=== PATIENT | female | born 1950 | race African-American/Black ===

== ENCOUNTER 2018-05-05 07:12 | Inpatient (IN) | payer SELFPAY ==
[~2018-05-05 07:12] MED LIST: BUPIVACAINE-EPI 0.5%-1:200000 50 ML VIAL.; MORPHINE SULFATE 2 MG/ML DISP.SYRIN. IV; ONDANSETRON PF 4 MG/2 ML VIAL. IV; PROCHLORPERAZINE 10 MG/2 ML VIAL. IV; fentaNYL PF VIAL 100 MCG/2 ML VIAL IV
[2018-05-05] MEDS: IV RINGERS,LACTATED 1000ML 1,000 ML IV ×2 (08:00→15:53)
[2018-05-05] MEDS: LIDOCAINE 1% PF 2 ML VIAL. ID (08:00)
[2018-05-05] MEDS ORDERED: MIDAZOLAM HCL/PF 2 MG/2 ML VIAL. (08:33)
[2018-05-05] MEDS ORDERED: ROPIVacaine 0.2% IN 0.9%NACL PF 40 MG/20 ML DISP.SYRIN. (08:46)
[2018-05-05 08:54] LABS: ADD MAN DIFF? NO
[2018-05-05 09:04] LABS: BASO % 1 % (0-3); EOS # 0.3 x10^3/uL (0.0-0.7); EOS % 5 % (0-3); HEMATOCRIT 37.8 % (36.0-47.0); HEMOGLOBIN 12.8 g/dL (12.0-15.5); LYMPH % 46 % (24-48); MEAN CORPUSCULAR HEMOGLOBIN 29 pg (25-35); MEAN CORPUSCULAR HGB CONC 34 g/dL (31-37); MEAN CORPUSCULAR VOLUME 86 fL (79-100); MONO # 0.5 x10^3/uL (0.0-1.1); MONO % 8 % (0-9); NEUT # 2.6 x10^3uL (1.8-7.7); NEUT % 41 % (31-73); PLATELET COUNT 330 x10^3/uL (140-400); RED BLOOD COUNT 4.39 x10^6/uL (3.50-5.40); RED CELL DISTRIBUTION WIDTH 14.5 % (11.5-14.5); WHITE BLOOD COUNT 6.5 x10^3/uL (4.0-11.0)
[2018-05-05 09:06] LABS: ANION GAP 8 (6-14); BLOOD UREA NITROGEN 5 mg/dL (7-20); BUN/CREATININE RATIO 8 (6-20); CALCIUM 8.9 mg/dL (8.5-10.1); CARBON DIOXIDE 31 mmol/L (21-32); CHLORIDE 103 mmol/L (98-107); CREATININE 0.6 mg/dL (0.6-1.0); GLUCOSE 120 mg/dL (70-99); POTASSIUM 3.6 mmol/L (3.5-5.1); SODIUM 142 mmol/L (136-145)
[2018-05-05 09:12] LABS: ALBUMIN 3.2 g/dL (3.4-5.0); ALBUMIN/GLOBULIN RATIO 0.7 (1.0-1.7); ALK PHOS 61 U/L (46-116); ALT (SGPT) 25 U/L (14-59); AST (SGOT) 20 U/L (15-37); TOTAL BILIRUBIN 0.4 mg/dL (0.2-1.0); TOTAL PROTEIN 7.7 g/dL (6.4-8.2)
[2018-05-05 09:14] LABS: INR 1.1 (0.8-1.1); PARTIAL THROMBOPLASTIN TIME 29 SEC (24-38); PROTHROMBIN TIME PATIENT 13.5 SEC (11.7-14.0)
[2018-05-05] MEDS ORDERED: fentaNYL PF VIAL 250 MCG/5 ML VIAL (09:24)
[2018-05-05] MEDS ORDERED: ISOFLURANE > 120 MINUTES. IH (09:24)
[2018-05-05] MEDS ORDERED: ROCURONIUM 50 MG/5 ML VIAL. ×2 (09:25→11:31)
[2018-05-05] MEDS ORDERED: ONDANSETRON PF 4 MG/2 ML VIAL. ×2 (09:25)
[2018-05-05] MEDS ORDERED: DEXAMETHASONE SOD PHOS 20 MG/5 ML VIAL. (09:25)
[2018-05-05] MEDS ORDERED: PROPOFOL 20 ML IV (09:25)
[2018-05-05] MEDS ORDERED: LIDOCAINE 2% PF Vial for OR 5 ML VIAL. (09:26)
[2018-05-05] MEDS ORDERED: GLYCOPYRROLATE 1 MG/5 ML VIAL. (13:29)
[2018-05-05] MEDS ORDERED: NEOSTIGMINE METHYLSULFATE 5 MG/5 ML SYRINGE. (13:29)
[2018-05-05] MEDS ORDERED: ONDANSETRON PF 4 MG/2 ML VIAL. IV (15:45)
[2018-05-05] MEDS ORDERED: 0.9 % SODIUM CHLORIDE 10 ML DISP.SYRIN. IV ×2 (15:45)
[2018-05-05] MEDS ORDERED: ceFAZolin SODIUM 1 GM in IV DEXTROSE 5% 50 ML IV (21:00)
[2018-05-05] MEDS: ceFAZolin SODIUM IV Push 1 GM VIAL. IVP (21:25)
[2018-05-05 23:16] LABS: POC GLUCOSE 241 mg/dL (70-99)
[2018-05-05] MEDS: POTASSIUM CL 20MEQ-0.45% NACL 1,000 ML IV (23:59)
[2018-05-05] MEDS: INSULIN LISPRO 300 UNITS/3 ML INSULN.PEN. SQ (23:59)
[2018-05-06] MEDS: POTASSIUM CL 20MEQ-0.45% NACL 1,000 ML IV ×3 (03:00→21:26)
[2018-05-06] MEDS: ceFAZolin SODIUM IV Push 1 GM VIAL. IVP ×3 (05:47→21:23)
[2018-05-06 06:25] LABS: BASO % 0 % (0-3); EOS % 0 % (0-3); HEMATOCRIT 35.2 % (36.0-47.0); HEMOGLOBIN 11.7 g/dL (12.0-15.5); LYMPH # 2.3 x10^3/uL (1.0-4.8); LYMPH % 13 % (24-48); MEAN CORPUSCULAR HEMOGLOBIN 29 pg (25-35); MEAN CORPUSCULAR HGB CONC 33 g/dL (31-37); MEAN CORPUSCULAR VOLUME 86 fL (79-100); MONO # 0.8 x10^3/uL (0.0-1.1); MONO % 4 % (0-9); NEUT # 15.2 x10^3uL (1.8-7.7); NEUT % 83 % (31-73); PLATELET COUNT 312 x10^3/uL (140-400); RED BLOOD COUNT 4.09 x10^6/uL (3.50-5.40); RED CELL DISTRIBUTION WIDTH 14.8 % (11.5-14.5); WHITE BLOOD COUNT 18.3 x10^3/uL (4.0-11.0)
[2018-05-06 06:35] LABS: ALBUMIN 2.3 g/dL (3.4-5.0); ALBUMIN/GLOBULIN RATIO 0.6 (1.0-1.7); ALK PHOS 54 U/L (46-116); ALT (SGPT) 20 U/L (14-59); ANION GAP 7 (6-14); AST (SGOT) 16 U/L (15-37); BLOOD UREA NITROGEN 9 mg/dL (7-20); BUN/CREATININE RATIO 8 (6-20); CALCIUM 7.6 mg/dL (8.5-10.1); CARBON DIOXIDE 28 mmol/L (21-32); CHLORIDE 102 mmol/L (98-107); CREATININE 1.2 mg/dL (0.6-1.0); GFR 54.4; GLUCOSE 188 mg/dL (70-99); POTASSIUM 3.9 mmol/L (3.5-5.1); SODIUM 137 mmol/L (136-145); TOTAL BILIRUBIN 0.4 mg/dL (0.2-1.0); TOTAL PROTEIN 6.2 g/dL (6.4-8.2)
[2018-05-06 06:50] LABS: ADD MAN DIFF? YES
[2018-05-06] MEDS: INSULIN LISPRO 300 UNITS/3 ML INSULN.PEN. SQ ×3 (08:00→17:00)
[2018-05-06 08:38] LABS: POC GLUCOSE 161 mg/dL (70-99)
[2018-05-06 09:57] LABS: % BANDS 6 % (0-9); % LYMPHS 18 % (24-48); % MONOS 4 % (0-10); % SEGS 72 % (35-66); PLT ESTIMATE ADEQUATE (ADEQUATE)
[2018-05-06 13:13] LABS: POC GLUCOSE 142 mg/dL (70-99)
[2018-05-06] MEDS ORDERED: KETOROLAC 30 MG/ML INJ. IV (16:30)
[2018-05-06 21:14] LABS: POC GLUCOSE 153 mg/dL (70-99)
[2018-05-06] MEDS: INSULIN NPH/REG INSULIN 70/30 300 UNITS/3 ML INSULN.PEN. SQ (21:26)
[2018-05-06 21:35] LABS: POC GLUCOSE 160 mg/dL (70-99)
[2018-05-07 01:14] LABS: HEMOGLOBIN A1C 6.9 % (4.8-5.6)
[2018-05-07 05:04] LABS: ADD MAN DIFF? NO
[2018-05-07 05:15] LABS: BASO # 0.1 x10^3/uL (0.0-0.2); BASO % 0 % (0-3); EOS # 0.1 x10^3/uL (0.0-0.7); EOS % 1 % (0-3); HEMATOCRIT 31.2 % (36.0-47.0); HEMOGLOBIN 10.6 g/dL (12.0-15.5); LYMPH # 2.7 x10^3/uL (1.0-4.8); LYMPH % 19 % (24-48); MEAN CORPUSCULAR HEMOGLOBIN 29 pg (25-35); MEAN CORPUSCULAR HGB CONC 34 g/dL (31-37); MEAN CORPUSCULAR VOLUME 86 fL (79-100); MONO # 0.9 x10^3/uL (0.0-1.1); MONO % 6 % (0-9); NEUT # 10.4 x10^3uL (1.8-7.7); NEUT % 74 % (31-73); PLATELET COUNT 254 x10^3/uL (140-400); RED BLOOD COUNT 3.63 x10^6/uL (3.50-5.40); WHITE BLOOD COUNT 14.1 x10^3/uL (4.0-11.0)
[2018-05-07 05:30] LABS: ALBUMIN 2.2 g/dL (3.4-5.0); ALBUMIN/GLOBULIN RATIO 0.5 (1.0-1.7); ALK PHOS 55 U/L (46-116); ALT (SGPT) 16 U/L (14-59); ANION GAP 5 (6-14); AST (SGOT) 12 U/L (15-37); BLOOD UREA NITROGEN 6 mg/dL (7-20); BUN/CREATININE RATIO 10 (6-20); CALCIUM 7.8 mg/dL (8.5-10.1); CARBON DIOXIDE 28 mmol/L (21-32); CHLORIDE 102 mmol/L (98-107); CREATININE 0.6 mg/dL (0.6-1.0); GLUCOSE 134 mg/dL (70-99); POTASSIUM 3.8 mmol/L (3.5-5.1); SODIUM 135 mmol/L (136-145); TOTAL BILIRUBIN 0.4 mg/dL (0.2-1.0); TOTAL PROTEIN 6.4 g/dL (6.4-8.2)
[2018-05-07] MEDS: ceFAZolin SODIUM IV Push 1 GM VIAL. IVP ×2 (05:32→14:37)
[2018-05-07] MEDS: INSULIN LISPRO 300 UNITS/3 ML INSULN.PEN. SQ ×3 (08:00→17:00)
[2018-05-07] MEDS: POTASSIUM CL 20MEQ-0.45% NACL 1,000 ML IV ×2 (08:55→19:51)
[2018-05-07 08:57] LABS: POC GLUCOSE 130 mg/dL (70-99)
[2018-05-07] MEDS: HEPARIN PF for SUB-Q USE 5,000 UNIT/0.5 ML VIAL. SQ ×2 (14:53→22:37)
[2018-05-07 17:51] LABS: POC GLUCOSE 125 mg/dL (70-99)
[2018-05-07 17:51] LABS: POC GLUCOSE 153 mg/dL (70-99)
[2018-05-07 20:31] LABS: POC GLUCOSE 136 mg/dL (70-99)
[2018-05-07] MEDS: INSULIN NPH/REG INSULIN 70/30 300 UNITS/3 ML INSULN.PEN. SQ (22:38)
[2018-05-08 05:03] LABS: ADD MAN DIFF? NO
[2018-05-08 05:10] LABS: BASO % 0 % (0-3); EOS # 0.4 x10^3/uL (0.0-0.7); EOS % 4 % (0-3); HEMATOCRIT 28.3 % (36.0-47.0); HEMOGLOBIN 9.8 g/dL (12.0-15.5); LYMPH # 2.6 x10^3/uL (1.0-4.8); LYMPH % 25 % (24-48); MEAN CORPUSCULAR HEMOGLOBIN 30 pg (25-35); MEAN CORPUSCULAR HGB CONC 35 g/dL (31-37); MEAN CORPUSCULAR VOLUME 86 fL (79-100); MONO # 0.5 x10^3/uL (0.0-1.1); MONO % 5 % (0-9); NEUT # 6.6 x10^3uL (1.8-7.7); NEUT % 65 % (31-73); PLATELET COUNT 247 x10^3/uL (140-400); RED BLOOD COUNT 3.31 x10^6/uL (3.50-5.40); RED CELL DISTRIBUTION WIDTH 14.4 % (11.5-14.5); WHITE BLOOD COUNT 10.1 x10^3/uL (4.0-11.0)
[2018-05-08] MEDS: POTASSIUM CL 20MEQ-0.45% NACL 1,000 ML IV ×2 (05:16→15:33)
[2018-05-08] MEDS: HEPARIN PF for SUB-Q USE 5,000 UNIT/0.5 ML VIAL. SQ ×3 (05:20→22:01)
[2018-05-08 05:39] LABS: ANION GAP 4 (6-14); BLOOD UREA NITROGEN 5 mg/dL (7-20); CALCIUM 7.6 mg/dL (8.5-10.1); CARBON DIOXIDE 31 mmol/L (21-32); CHLORIDE 103 mmol/L (98-107); CREATININE 0.5 mg/dL (0.6-1.0); GFR 149.4; GLUCOSE 64 mg/dL (70-99); POTASSIUM 3.8 mmol/L (3.5-5.1); SODIUM 138 mmol/L (136-145)
[2018-05-08] MEDS ORDERED: DEXTROSE 50% 25 GM / 50ML DISP.SYRIN. IV (06:55)
[2018-05-08 06:56] LABS: POC GLUCOSE 62 mg/dL (70-99)
[2018-05-08] MEDS: DEXTROSE 50% 25 GM / 50ML DISP.SYRIN. IV (07:00)
[2018-05-08] MEDS: INSULIN LISPRO 300 UNITS/3 ML INSULN.PEN. SQ ×3 (08:00→17:00)
[2018-05-08 08:18] LABS: POC GLUCOSE 110 mg/dL (70-99)
[2018-05-08 11:29] LABS: POC GLUCOSE 78 mg/dL (70-99)
[2018-05-08 16:59] LABS: POC GLUCOSE 107 mg/dL (70-99)
[2018-05-08 20:41] LABS: POC GLUCOSE 114 mg/dL (70-99)
[2018-05-08] MEDS: INSULIN NPH/REG INSULIN 70/30 300 UNITS/3 ML INSULN.PEN. SQ (21:00)
[2018-05-09 03:40] LABS: ADD MAN DIFF? NO
[2018-05-09 03:50] LABS: BASO % 0 % (0-3); EOS # 0.4 x10^3/uL (0.0-0.7); EOS % 7 % (0-3); HEMATOCRIT 28.7 % (36.0-47.0); HEMOGLOBIN 9.5 g/dL (12.0-15.5); LYMPH # 1.8 x10^3/uL (1.0-4.8); LYMPH % 27 % (24-48); MEAN CORPUSCULAR HEMOGLOBIN 29 pg (25-35); MEAN CORPUSCULAR HGB CONC 33 g/dL (31-37); MEAN CORPUSCULAR VOLUME 86 fL (79-100); MONO # 0.5 x10^3/uL (0.0-1.1); MONO % 7 % (0-9); NEUT # 4.1 x10^3uL (1.8-7.7); NEUT % 59 % (31-73); PLATELET COUNT 253 x10^3/uL (140-400); RED BLOOD COUNT 3.32 x10^6/uL (3.50-5.40); RED CELL DISTRIBUTION WIDTH 14.4 % (11.5-14.5); WHITE BLOOD COUNT 6.9 x10^3/uL (4.0-11.0)
[2018-05-09 03:56] LABS: ANION GAP 5 (6-14); BLOOD UREA NITROGEN 5 mg/dL (7-20); CALCIUM 7.7 mg/dL (8.5-10.1); CARBON DIOXIDE 29 mmol/L (21-32); CHLORIDE 102 mmol/L (98-107); CREATININE 0.5 mg/dL (0.6-1.0); GFR 149.4; GLUCOSE 104 mg/dL (70-99); POTASSIUM 3.7 mmol/L (3.5-5.1); SODIUM 136 mmol/L (136-145)
[2018-05-09] MEDS: POTASSIUM CL 20MEQ-0.45% NACL 1,000 ML IV ×2 (05:16→21:06)
[2018-05-09] MEDS: HEPARIN PF for SUB-Q USE 5,000 UNIT/0.5 ML VIAL. SQ ×3 (06:14→21:10)
[2018-05-09 07:55] LABS: POC GLUCOSE 110 mg/dL (70-99)
[2018-05-09] MEDS: INSULIN LISPRO 300 UNITS/3 ML INSULN.PEN. SQ ×3 (08:00→17:00)
[2018-05-09 11:42] LABS: POC GLUCOSE 122 mg/dL (70-99)
[2018-05-09 16:58] LABS: POC GLUCOSE 115 mg/dL (70-99)
[2018-05-09 21:53] LABS: POC GLUCOSE 135 mg/dL (70-99)
[2018-05-09] MEDS: INSULIN NPH/REG INSULIN 70/30 300 UNITS/3 ML INSULN.PEN. SQ (22:19)
[2018-05-10] MEDS: HEPARIN PF for SUB-Q USE 5,000 UNIT/0.5 ML VIAL. SQ ×3 (05:48→21:40)
[2018-05-10] MEDS: INSULIN LISPRO 300 UNITS/3 ML INSULN.PEN. SQ ×3 (08:00→17:00)
[2018-05-10 08:15] LABS: POC GLUCOSE 92 mg/dL (70-99)
[2018-05-10] MEDS: POTASSIUM CL 20MEQ-0.45% NACL 1,000 ML IV ×2 (09:00→22:45)
[2018-05-10] MEDS: PNEUMOC CONJ VACC 23-VALENT 0.5 ML VIAL. VAX IM (10:13)
[2018-05-10 11:59] LABS: POC GLUCOSE 95 mg/dL (70-99)
[2018-05-10 17:54] LABS: POC GLUCOSE 142 mg/dL (70-99)
[2018-05-10 20:54] LABS: POC GLUCOSE 249 mg/dL (70-99)
[2018-05-10] MEDS: LABETALOL 20 MG/4 ML DISP.SYRIN. IVP (21:29)
[2018-05-11] MEDS: HEPARIN PF for SUB-Q USE 5,000 UNIT/0.5 ML VIAL. SQ ×3 (06:00→21:44)
[2018-05-11] MEDS: INSULIN LISPRO 300 UNITS/3 ML INSULN.PEN. SQ ×3 (08:00→17:28)
[2018-05-11 08:39] LABS: POC GLUCOSE 153 mg/dL (70-99)
[2018-05-11 08:52] LABS: ADD MAN DIFF? NO
[2018-05-11 09:00] LABS: BASO % 1 % (0-3); EOS # 0.4 x10^3/uL (0.0-0.7); EOS % 8 % (0-3); HEMATOCRIT 30.5 % (36.0-47.0); HEMOGLOBIN 10.5 g/dL (12.0-15.5); LYMPH # 1.3 x10^3/uL (1.0-4.8); LYMPH % 23 % (24-48); MEAN CORPUSCULAR HEMOGLOBIN 29 pg (25-35); MEAN CORPUSCULAR HGB CONC 34 g/dL (31-37); MEAN CORPUSCULAR VOLUME 85 fL (79-100); MONO # 0.5 x10^3/uL (0.0-1.1); MONO % 8 % (0-9); NEUT # 3.4 x10^3uL (1.8-7.7); NEUT % 60 % (31-73); PLATELET COUNT 346 x10^3/uL (140-400); RED BLOOD COUNT 3.59 x10^6/uL (3.50-5.40); RED CELL DISTRIBUTION WIDTH 13.9 % (11.5-14.5); WHITE BLOOD COUNT 5.6 x10^3/uL (4.0-11.0)
[2018-05-11 09:07] LABS: ANION GAP 5 (6-14); BLOOD UREA NITROGEN 3 mg/dL (7-20); CALCIUM 8.4 mg/dL (8.5-10.1); CARBON DIOXIDE 32 mmol/L (21-32); CHLORIDE 101 mmol/L (98-107); CREATININE 0.5 mg/dL (0.6-1.0); GFR 149.4; GLUCOSE 153 mg/dL (70-99); POTASSIUM 4.2 mmol/L (3.5-5.1); SODIUM 138 mmol/L (136-145)
[2018-05-11] MEDS: LISINOPRIL 10 MG TABLET PO (09:24)
[2018-05-11] MEDS: POTASSIUM CL 20MEQ-0.45% NACL 1,000 ML IV (12:00)
[2018-05-11 13:12] LABS: POC GLUCOSE 155 mg/dL (70-99)
[2018-05-11] MEDS: oxyCODONE/APAP 7.5/325 1 TAB TABLET PO ×2 (16:54→21:33)
[2018-05-11 17:13] LABS: POC GLUCOSE 180 mg/dL (70-99)
[2018-05-11 20:45] LABS: POC GLUCOSE 139 mg/dL (70-99)
[2018-05-12] MEDS: POTASSIUM CL 20MEQ-0.45% NACL 1,000 ML IV (01:07)
[2018-05-12] MEDS: oxyCODONE/APAP 7.5/325 1 TAB TABLET PO ×2 (02:48→10:06)
[2018-05-12] MEDS: HEPARIN PF for SUB-Q USE 5,000 UNIT/0.5 ML VIAL. SQ (05:53)
[2018-05-12 07:02] LABS: ADD MAN DIFF? NO
[2018-05-12 07:05] LABS: BASO % 1 % (0-3); EOS # 0.4 x10^3/uL (0.0-0.7); EOS % 7 % (0-3); HEMATOCRIT 29.2 % (36.0-47.0); HEMOGLOBIN 9.8 g/dL (12.0-15.5); LYMPH # 1.8 x10^3/uL (1.0-4.8); LYMPH % 30 % (24-48); MEAN CORPUSCULAR HEMOGLOBIN 29 pg (25-35); MEAN CORPUSCULAR HGB CONC 34 g/dL (31-37); MEAN CORPUSCULAR VOLUME 86 fL (79-100); MONO # 0.5 x10^3/uL (0.0-1.1); MONO % 9 % (0-9); NEUT # 3.2 x10^3uL (1.8-7.7); NEUT % 54 % (31-73); PLATELET COUNT 337 x10^3/uL (140-400); RED BLOOD COUNT 3.41 x10^6/uL (3.50-5.40); RED CELL DISTRIBUTION WIDTH 14.2 % (11.5-14.5); WHITE BLOOD COUNT 5.9 x10^3/uL (4.0-11.0)
[2018-05-12 07:34] LABS: ANION GAP 1 (6-14); BLOOD UREA NITROGEN 3 mg/dL (7-20); CALCIUM 8.5 mg/dL (8.5-10.1); CARBON DIOXIDE 34 mmol/L (21-32); CHLORIDE 103 mmol/L (98-107); CREATININE 0.5 mg/dL (0.6-1.0); GFR 149.4; GLUCOSE 222 mg/dL (70-99); POTASSIUM 3.9 mmol/L (3.5-5.1); SODIUM 138 mmol/L (136-145)
[2018-05-12] MEDS: INSULIN LISPRO 300 UNITS/3 ML INSULN.PEN. SQ ×2 (08:01→12:12)
[2018-05-12] MEDS: LISINOPRIL 10 MG TABLET PO (09:23)
[2018-05-12 12:13] LABS: POC GLUCOSE 209 mg/dL (70-99)
[2018-05-13 06:43] LABS: POC GLUCOSE 206 mg/dL (70-99)
== END 2018-05-12 13:45 | disposition home or self-care (01) | DRG 331 ==
LOC: OPSVCIP 07:12 → 4 NORTH 16:45
PROC: 0DTN0ZZ Resection of Sigmoid Colon, Open Approach (ICD-10-PCS; principal; 2018-05-05 09:36)
DX: C18.7 Malignant neoplasm of sigmoid colon (principal); E11.42 Type 2 diabetes mellitus with diabetic polyneuropathy; I10 Essential (primary) hypertension; Z79.4 Long term (current) use of insulin; Z83.3 Family history of diabetes mellitus; Z86.13 Personal history of malaria; Z79.899 Other long term (current) drug therapy
CPT/HCPCS: 36415; 80048; 80053; 82962; 83036; 85007; 85025; 85610; 85730; 88305; 88309; 90732; 97110-GO; 97116-GP; 97162-GP; 97166-GO; 97530-GO; 97530-GP; 97535-GO; C1765; J0690; J1100; J1815; J2001; J2250; J2405; J2704; J2710; J2795; J3010; J3490; J7042; J7120